=== PATIENT | male | born 1990 | race Two or more races ===

== ENCOUNTER 2018-09-23 17:34 | Emergency (ER) | payer SELFPAY ==
[~2018-09-23] VITALS: Ht 177.8 cm; Wt 65.8 kg
[2018-09-23 18:01] VITALS: BP 125/74
[2018-09-23] MEDS ORDERED: KETOROLAC 60 MG/2 ML INJ. IM ONE (18:15)
[2018-09-23] MEDS ORDERED: CYCL5TAB PO (18:34)
[2018-09-23] MEDS ORDERED: TRAM50TA PO (18:34)
--- NOTE | 2018-09-23 18:35 | PHYS DOC ---
Past Medical History Past Medical History: No Pertinent History Past Surgical History: No Surgical History Alcohol Use: None Drug Use: None Adult General Chief Complaint Chief Complaint: LOWER BACK PAIN OR INJURY HPI HPI Patient is a 28 year old male who presents with lower back spasming and pain after he spent the day raking leaves. He went to cotton picker the sac of leaves and felt like his back "went out". He denies spontaneous loss of bowel or bladder, saddle numbness or foot drop. He has not taken ibuprofen or Tylenol for pain. He presented directly to the emergency department. Review of Systems Review of Systems Constitutional: Denies fever or chills [] Respiratory: Denies cough or shortness of breath [] Cardiovascular: No additional information not addressed in HPI [] GI: Denies abdominal pain, nausea, vomiting, bloody stools or diarrhea [] : Denies dysuria or hematuria [] Musculoskeletal: See history of present illness Integument: Denies rash or skin lesions [] Neurologic: Denies headache, focal weakness or sensory changes [] Endocrine: Denies polyuria or polydipsia [] All other systems were reviewed and found to be within normal limits, except as documented in this note. Current Medications Current Medications Current Medications Medications (Trade) Dose Ordered Sig/[facility] Start Time Stop Time Status Last Admin Dose Admin Ketorolac Tromethamine (Toradol Im) 60 mg 1X ONCE 09/23/18 18:15 09/23/18 18:16 DC 09/23/18 18:32 60 MG Allergies Allergies Allergies Coded Allergies Type Severity Reaction Last Updated Verified No Known Drug Allergies 09/23/18 No Physical Exam Physical Exam Constitutional: Well developed, well nourished, no acute distress, non-toxic appearance. [] Cardiovascular:Heart rate regular rhythm, no murmur [] Lungs & Thorax: Bilateral breath sounds clear to auscultation [] Abdomen: Bowel sounds normal, soft, no tenderness, no masses, no pulsatile masses. [] Skin: Warm, dry, no erythema, no rash. [] Back: No point spinal tenderness or step offs noted, generalized lumbar tenderness with palpation, no CVA tenderness. [] Extremities: No tenderness, no cyanosis, no clubbing, ROM intact, no edema. [] Neurologic: Alert and oriented X 3, normal motor function, normal sensory function, no focal deficits noted. [] Psychologic: Affect normal, judgement normal, mood normal. [] Current Patient Data Vital Signs Vital Signs Date Time Temp Pulse Resp B/P (MAP) Pulse Ox O2 Delivery O2 Flow Rate FiO2 09/23/18 18:01 98.6 89 16 125/74 (91) 98 Room Air 98.6 EKG EKG [] Radiology/Procedures Radiology/Procedures [] Course & Med Decision Making Course & Med Decision Making Pertinent Labs and Imaging studies reviewed. (See chart for details) The patient was given a shot of Toradol in the emergency department for pain. Dragon Disclaimer Dragon Disclaimer This electronic medical record was generated, in whole or in part, using a voice recognition dictation system. Departure Departure Impression: Primary Impression: Back pain Disposition: HOME, SELF-CARE Condition: STABLE Referrals: NO PCP (PCP) Patient Instructions: Back Pain, Adult Additional Instructions: Take the medications as directed. Do not drive or operate heavy machinery while taking this medication. Follow-up with your primary care provider in one week if not improving or return to the emergency department if worsening. Scripts Tramadol Hcl (TRAMADOL HCL) 50 Mg Tablet 50 MG PO Q6HRS PRN for PAIN, #20 TAB Prov: MARIAELENA GARZA APRN 09/23/18 Cyclobenzaprine Hcl (CYCLOBENZAPRINE HCL) 5 Mg Tablet 1 TAB PO QHS for muscle spasms, #30 TAB Prov: MARIAELENA GARZA APRN 09/23/18 MARIAELENA GARZA APRN Sep 23, 2018 18:35
== END 2018-09-23 18:59 | disposition home or self-care (01) ==
LOC: ER 17:34
DX: M54.5 Low back pain (principal)
CPT/HCPCS: 96372; 99283; J1885